=== PATIENT | male | born 1970 | race African-American/Black ===

== ENCOUNTER 2016-07-09 09:20 | Emergency (ER) | payer MEDICAID ==
[~2016-07-09] VITALS: Ht 195.6 cm; Wt 158.8 kg
[2016-07-09 09:29] VITALS: BP 174/92
--- NOTE | 2016-07-09 09:33 | NUR ---
PATIENT AMBULATED TO BED 7 AT THIS TIME.
--- NOTE | 2016-07-09 09:44 | NUR ---
PATIENT PRESENTS TO ED WITH LEFT KNEE PAIN X 1 DAY . PT STATES HE DOES NOT RECALL ANY INJURY, STATES HE HAS A HX OF BILATERAL KNEE DISLOCATIONS A YOUTH WHILE PLAYING FOOTBALL, NO OBVIOUS DEFOMRITY NOTED . DENIES N/V/D; SKIN IS PINK/WARM/DRY; AAOX4 WITH EVEN AND STEADY GAIT; PT DENIES ANY FEVER, CP, SOB, OR COUGH AT THIS TIME; PATIENT STATES PAIN OF 7/10 AT THIS TIME; VSS; PATIENT POSITIONED FOR COMFORT; HOB ELEVATED; BEDRAILS UP X1; BED DOWN.
--- NOTE | 2016-07-09 09:59 | NUR ---
XRAY AT BEDSIDE
--- NOTE | 2016-07-09 10:22 | NUR ---
DR MCCABE AT BEDSIDE
[2016-07-09] MEDS ORDERED: KETOROLAC 60 MG/2 ML VIAL IM ONE (10:30)
--- NOTE | 2016-07-09 10:48 | NUR ---
Patient discharged with v/s stable. Written and verbal after care instructions given and explained. Patient alert, oriented and verbalized understanding of instructions. Ambulatory with steady gait. All questions addressed prior to discharge. ID band removed. Patient advised to follow up with PMD, PATIENT STATES HE DOES NOT HAVE A PMD. Rx of MOTRIN given. Patient educated on indication of medication including possible reaction and side effects. Opportunity to ask questions provided and answered. PATIENT GIVEN RESOURCES OF POTENTIAL PMD WHO HE CAN CALL IN ORDER TO DO FOLLOW UP WITH. ADVISED TO FOLLOW UP WITH A PMD REGARDING HIS ELEVATED BP WELL HIS KNEE.
[2016-07-09 10:51] VITALS: BP 174/92
== END 2016-07-09 10:48 | disposition home or self-care (01) ==
LOC: MED 09:20
DX: M25.562 Pain in left knee (principal); I10 Essential (primary) hypertension
CPT/HCPCS: 73562; 96372; 99284; J1885; Q0092